=== PATIENT | female | born 1980 | race Caucasian/White ===

== ENCOUNTER 2020-10-19 08:47 | Inpatient (IN) ==
[2020-10-19] MEDS ORDERED: Nitroglycerin 0.4 MG TAB.SUBL SL PRN (10:11)
[2020-10-19] MEDS ORDERED: Nitroglycerin 0.4 MG TAB.SUBL SL ONE (10:12)
[2020-10-19] MEDS ORDERED: *HR* LORazepam 2 MG/ML VIAL ONE (11:48)
[2020-10-19] MEDS ORDERED: Isovue-370 500 ML BOTTLE IVP ONE (11:52)
[2020-10-19 12:10] LABS: Hematocrit 49.3 % (35.3-44.9); Hemoglobin 15.2 g/dL (11.5-15.4); Mean Corpuscular HGB Conc 30.8 g/dL (31.6-35.5); Mean Corpuscular Hemoglobin 30.5 pg (28.0-33.3); Mean Corpuscular Volume 98.8 fL (83.0-100.0); Mean Platelet Volume 10.4 fL (9.4-12.4); Platelet Count 289 K/mcL (140-400); Red Blood Count 4.99 M/mcL (3.82-4.97); Red Cell Distribution Width 12.7 % (11.5-14.5); White Blood Count 16.2 K/mcL (4.3-11.1)
[2020-10-19 12:30] LABS: Acetaminophen < 10 mcg/mL (10-20); Ethanol < 10 mg/dL (Less than 10); Salicylate < 2.5 mg/dL (15.0-30.0)
[2020-10-19 12:32] LABS: Alanine Aminotransferase 8 Units/L (7-52); Albumin 4.9 g/dL (3.5-5.7); Albumin/Globulin Ratio 1.2 (1.1-2.2); Alkaline Phosphatase 69 Units/L (34-104); Aspartate Amino Transferase 20 Units/L (13-39); BUN/Creatinine Ratio 14 (6-26); Bilirubin,Direct 0.2 mg/dL (0.0-0.2); Bilirubin,Indirect 0.5 mg/dL (0.0-1.0); Bilirubin,Total 0.7 mg/dL (0.3-1.0); Blood Urea Nitrogen 18 mg/dL (6-20); Calcium 10.8 mg/dL (8.6-10.3); Carbon Dioxide 15 mEq/L (23-29); Chloride 102 mEq/L (98-107); Glucose 107 mg/dL (70-105); Lipase 20 Units/L (11-82); Osmolality,Calculated 296 (280-300); Potassium 3.8 mEq/L (3.5-5.1); Sodium 142 mEq/L (136-145); Total Protein 8.9 g/dL (6.4-8.9); eGFR For African Americans 56 (> 60); eGFR For Non-African Americans 46 (> 60)
[2020-10-19 12:33] LABS: Troponin I < 0.03 ng/mL (< 0.04)
[2020-10-19] MEDS ORDERED: 0.9 % Sodium Chloride 1,000 ML IVC SCH ×2 (12:45→17:00)
[2020-10-19 13:56] LABS: Bacteria,Urine Few per hpf (None-Few); Bilirubin,Urine Negative (Negative); Blood,Urine Small (Negative); Clarity,Urine Clear (Clear); Color,Urine Light-Yellow (Yellow); Glucose,Urine (UA) Normal (Normal); Hyaline Casts,Urine Few per lpf (None Seen); Ketones,Urine 10 mg/dL (Negative); Leukocyte Esterase,Urine Negative (Negative); Mucus,Urine Few per lpf (None-Few); Nitrite,Urine Negative (Negative); Protein,Urine 100 mg/dL (Neg-Trace); RBC,Urine 0-3 per hpf (0-3); Squamous Epithelial Cell,Urine Few per hpf (None-Few); Urobilinogen,Urine Normal (Normal)
[2020-10-19 14:06] LABS: Amphetamine Screen,Urine Positive ng/mL (Cutoff=1000); Barbiturate Screen,Urine Negative ng/mL (Cutoff=200); Benzodiazepines Screen,Urine Positive ng/mL (Cutoff=200); Cannabinoid Screen,Urine Positive ng/mL (Cutoff = 50); Cocaine Screen,Urine Positive ng/mL (Cutoff= 300); Opiate Screen,Urine Negative ng/mL (Cutoff=300); Phencyclidine Screen,Urine Negative ng/mL (Cutoff=25)
[2020-10-19 14:52] LABS: Appearance,CSF Clear (Clear); Red Blood Cell,CSF < 2000 RBC/mcL
[2020-10-19 15:04] LABS: Glucose,CSF 83 mg/dL (40-70); Total Protein,CSF 71 mg/dL (15-45)
[2020-10-19 16:22] LABS: VBG HCO3 23 mEq/L (21-27); VBG PCO2 35 mmHg (41-51); VBG PH 7.43 pH Units (7.32-7.42); VBG PO2 78 mmHg (25-50)
[2020-10-19] MEDS: Piperacillin/Tazobactam 3.375 GM in 0.9 % Sodium Chloride Mini Bag 100 ML IVPB SCH ×2 (16:29→23:29)
[2020-10-19] MEDS ORDERED: Acetaminophen 325 MG TABLET PO PRN (16:55)
[2020-10-19] MEDS ORDERED: Naloxone 0.4 MG/ML INJ IVP PRN (16:55)
[2020-10-19] MEDS ORDERED: Ondansetron 4 MG/2 ML VIAL IVP PRN (16:55)
[2020-10-19] MEDS ORDERED: Piperacillin/Tazobactam 3.375 GM in 0.9 % Sodium Chloride Mini Bag 100 ML IVPB SCH (18:00)
[2020-10-19] MEDS: Thiamine (B-1) 100 MG, Folic Acid 1 MG, MVI, adult with vitamin K 10 ML in 0.9 % Sodi... IVPB SCH (19:01)
[2020-10-20 03:32] LABS: Alanine Aminotransferase 8 Units/L (7-52); Albumin 3.7 g/dL (3.5-5.7); Albumin/Globulin Ratio 1.2 (1.1-2.2); Alkaline Phosphatase 52 Units/L (34-104); Aspartate Amino Transferase 38 Units/L (13-39); BUN/Creatinine Ratio 11 (6-26); Bilirubin,Total 1.2 mg/dL (0.3-1.0); Blood Urea Nitrogen 10 mg/dL (6-20); Calcium 8.5 mg/dL (8.6-10.3); Carbon Dioxide 23 mEq/L (23-29); Chloride 108 mEq/L (98-107); Globulin 3.1 g/dL (2.4-3.5); Glucose 142 mg/dL (70-105); Magnesium 1.9 mg/dL (1.6-2.6); Osmolality,Calculated 287 (280-300); Phosphorous 1.6 mg/dL (2.7-4.5); Potassium 2.9 mEq/L (3.5-5.1); Sodium 138 mEq/L (136-145); Total Protein 6.8 g/dL (6.4-8.9); eGFR For African Americans > 60 (> 60); eGFR For Non-African Americans > 60 (> 60)
[2020-10-20 04:58] LABS: Hematocrit 37.3 % (35.3-44.9); Hemoglobin 12.6 g/dL (11.5-15.4); Mean Corpuscular HGB Conc 33.8 g/dL (31.6-35.5); Mean Corpuscular Hemoglobin 31.1 pg (28.0-33.3); Mean Corpuscular Volume 92.1 fL (83.0-100.0); Mean Platelet Volume 9.9 fL (9.4-12.4); Platelet Count 238 K/mcL (140-400); Red Blood Count 4.05 M/mcL (3.82-4.97); Red Cell Distribution Width 12.7 % (11.5-14.5)
[2020-10-20] MEDS ORDERED: *HR* Enoxaparin 40 MG/0.4 ML SYRINGE SQ SCH (06:00)
[2020-10-20] MEDS: Piperacillin/Tazobactam 3.375 GM in 0.9 % Sodium Chloride Mini Bag 100 ML IVPB SCH (07:05)
[2020-10-20] MEDS ORDERED: Ketorolac 30 MG/ML VIAL IVP ONE (07:31)
[2020-10-20] MEDS ORDERED: Potassium Phosphate 44 MEQ in 0.9 % Sodium Chloride 250 ML IVPB ONE (08:00)
[2020-10-20] MEDS ORDERED: Ketorolac 15 MG/ML VIAL IVP PRN ×2 (12:00→18:00)
[2020-10-20 14:01] LABS: Hepatitis B Surface Antigen Nonreactive (Nonreactive)
[2020-10-20 14:31] LABS: HIV-1&2 Antibody & p24 Ag Nonreactive (Nonreactive); Hepatitis A Antibody IgM Nonreactive (Nonreactive); Hepatitis B Core IgM Nonreactive (Nonreactive)
[2020-10-20 15:33] VITALS: BP 173/93
[2020-10-20] MEDS: Thiamine (B-1) 100 MG, Folic Acid 1 MG, MVI, adult with vitamin K 10 ML in 0.9 % Sodi... IVPB SCH (16:11)
[2020-10-20 16:32] LABS: Hepatitis C Virus Antibody Reactive (Nonreactive)
[2020-10-20] MEDS ORDERED: levETIRAcetam 250 MG TABLET PO SCH (21:00)
== END 2020-10-20 16:47 | disposition left against medical advice (07) | DRG 720 ==
LOC: 2ANU 08:47 → EMEROOARM 08:47 → SUATTDRO 14:44 → 2ANU 15:44
PROVIDERS: ADMIT Internal Medicine; ATTEND Internal Medicine